=== PATIENT | male | born 1995 | race Caucasian/White ===

== ENCOUNTER 2021-12-01 19:30 | Emergency (ER) | payer BC ==
[2021-12-01 19:45] VITALS: BP 161/89; PULSE 114; TEMP 98.9; BMI 24.3
[2021-12-01 22:23] LABS: EOS % 0.4 % (0-4.5); HEMATOCRIT 40.7 % (35.4-49); HEMOGLOBIN 14.3 GM/dL (11.7-16.9); LYMPH % 25.5 % (8-40); MCH 33.9 pg (25.7-33.7); MCHC 35.2 g/dl (32.0-35.9); MEAN CELL VOLUME 96.3 fl (80-96); MEAN PLT VOLUME 8.1 fl (7.5-11.1); MONO % 11.4 % (3.8-10.2); NEUT % 61.7 % (42.8-82.8); PLATELET COUNT 209 10^3/uL (134-434); RBC 4.23 M/mm3 (4.00-5.60); RDW 13.7 % (11.9-15.9); WHITE BLOOD COUNT 4.5 K/mm3 (4.0-10.0)
[2021-12-01] MEDS ORDERED: SODIUM CHLORIDE 0.9% 500 ML INFUS.BAG IV ONE (22:48)
[2021-12-01 22:50] LABS: CALCIUM 9.5 mg/dL (8.5-10.1)
[2021-12-01 22:52] LABS: ALBUMIN 4.5 g/dl (3.4-5.0)
[2021-12-01 22:56] LABS: BILIRUBIN,TOTAL 1.7 mg/dL (0.2-1); TOT PROT 7.6 g/dl (6.4-8.2)
== END 2021-12-02 00:56 | disposition home or self-care (01) ==
LOC: JER 19:30
DX: R16.0 Hepatomegaly, not elsewhere classified (principal); R74.01 Elevation of levels of liver transaminase levels; F10.10 Alcohol abuse, uncomplicated
CPT/HCPCS: 36415; 74177-TC; 76705-TC; 80053; 85025; 93005; 93010; 99284-25; Q9967